=== PATIENT | male | born 1945 | race Caucasian/White ===

== ENCOUNTER 2017-08-28 19:40 | Emergency (ER) | payer MEDICARE, OTHER ==
[~2017-08-28] VITALS: Ht 177.8 cm; Wt 63.5 kg
--- NOTE | 2017-08-28 20:05 | NUR ---
PT BIB [facility] TO THE ER WITH A C/O CP. PT IS AA&O X4. PT IS ON THE MONITOR AND CONTINUOUS PULSE OX. PT IS C/O MID STERNAL CP 3/10. 20G IV STARTED IN RAC. BLOOD WAS DRAWN AND SENT TO LAB.
[2017-08-28 20:10] LABS: BASOPHILS % (AUTO) 0.8 % (0.0-2.0); EOSINOPHILS # (AUTO) 0.1 /CMM (0.0-0.7); EOSINOPHILS % (AUTO) 1.7 % (0.0-6.0); HEMATOCRIT 31 % (39-51); HEMOGLOBIN 10.3 g/dL (13.5-17.5); LYMPHOCYTES # (AUTO) 1.7 /CMM (0.8-4.8); LYMPHOCYTES % (AUTO) 32.7 % (20.0-44.0); MEAN CORPUSCULAR HEMOGLOBIN 27 PG (26.0-33.0); MEAN CORPUSCULAR HGB CONC 33 g/dl (31.0-36.0); MEAN CORPUSCULAR VOLUME 83 fL (80-96); MONOCYTES # (AUTO) 0.6 /CMM (0.1-1.30); NEUTROPHILS # (AUTO) 2.8 /CMM (1.8-8.9); NEUTROPHILS % (AUTO) 52.8 % (43.0-81.0); PLATELET COUNT (AUTO) 293 /CMM (150-450); RED BLOOD CELL COUNT(AUTO) 3.76 MIL/uL (4.5-6.0); WHITE BLOOD COUNT (AUTO) 5.2 K/uL (4.3-11.0)
[2017-08-28 20:20] LABS: CALCIUM, SERUM 9.4 mg/dL (8.5-10.1); CARBON DIOXIDE 32 mmol/L (21-32); CHLORIDE 101 mmol/L (98-107); CREATININE 1.3 mg/dL (0.6-1.3); GLUCOSE 104 mg/dL (74-106); POTASSIUM 3.9 mmol/L (3.5-5.1); SODIUM SERUM 137 mmol/L (136-145); UREA NITROGEN, BLOOD 17 mg/dL (7-18)
[2017-08-28 20:26] LABS: ALANINE AMINOTRANSFERASE 16 U/L (12-78); ALBUMIN 3.1 g/dL (3.4-5.0); ALKALINE PHOSPHATASE 72 U/L (46-116); ASPARTATE AMINOTRANSFERASE 13 U/L (15-37); BILIRUBIN,DIRECT 0.1 mg/dL (0.0-0.2); BILIRUBIN,TOTAL 0.4 mg/dL (0.2-1.0); LIPASE 292 U/L (73-393); TOTAL PROTEIN, SERUM 9.1 g/dL (6.4-8.2)
--- NOTE | 2017-08-28 20:44 | NUR ---
PT REC'D A URINAL AND IS TRYING TO GIVE US A URINE SAMPLE.
[2017-08-28 21:35] VITALS: BP 152/94
--- NOTE | 2017-08-28 21:35 | NUR ---
IV removed. Catheter intact and site benign. Pressure and 4x4 applied to site. No bleeding noted.Patient discharged to home in stable condition. Written and verbal after care instructions given. Patient verbalizes understanding of instruction. PT AMBULATED TO THE LOBBY WITH A STEADY GAIT. VSS
== END 2017-08-28 21:36 | disposition home or self-care (01) ==
LOC: ER 19:41
DX: R10.84 Generalized abdominal pain (principal); D64.9 Anemia, unspecified; Z87.11 Personal history of peptic ulcer disease
CPT/HCPCS: 36415; 80048; 80076; 83690; 85025; 93005; 99285; A4606; Z7610

== ENCOUNTER 2021-05-18 22:56 | Emergency (ER) | payer MEDICARE, OTHER ==
[~2021-05-18] VITALS: Ht 167.6 cm; Wt 64.0 kg
[2021-05-18 22:56] VITALS: BP 150/76
--- NOTE | 2021-05-18 23:15 | NUR ---
DR. MICHAEL TAVERAS PER MD REQUEST ([phone])
[2021-05-18] MEDS ORDERED: ONDANSETRON 4 MG TAB.RAPDIS ONE (23:26)
[2021-05-18] MEDS ORDERED: MORPHINE SULFATE INJ 4 MG/ML DISP.SYRIN ONE (23:26)
[2021-05-18] MEDS: ONDANSETRON 4 MG TAB.RAPDIS SL ONE (23:31)
[2021-05-18] MEDS: MORPHINE SULFATE INJ 2 MG/ML DISP.SYRIN IM ONE (23:31)
[2021-05-19] MEDS ORDERED: HYDR-3972 PO (00:11)
--- NOTE | 2021-05-19 00:13 | NUR ---
[facility] ETA 1HOUR.
--- NOTE | 2021-05-19 00:16 | NUR ---
REPORT GIVEN TO ADRIANO LANDEROS FROM [facility]
--- NOTE | 2021-05-19 00:50 | NUR ---
REPORT GIVEN TO [facility] FOR [facility]
== END 2021-05-19 00:51 | disposition home or self-care (01) ==
LOC: ER 23:01
DX: R10.84 Generalized abdominal pain (principal); C79.9 Secondary malignant neoplasm of unspecified site; I10 Essential (primary) hypertension; E78.5 Hyperlipidemia, unspecified; E11.9 Type 2 diabetes mellitus without complications; D64.9 Anemia, unspecified; E03.9 Hypothyroidism, unspecified
CPT/HCPCS: 96372; 99283; J2270; Q0162